=== PATIENT | female | born 1945 | race African-American/Black ===

== ENCOUNTER 2021-02-02 22:00 | Emergency (ER) | payer MEDICARE ==
[~2021-02-02] VITALS: Ht 170.2 cm; Wt 35.8 kg
[2021-02-02] MEDS ORDERED: SODIUM CHLORIDE 0.9% 1000ML 1,000 ML IV ONE (22:15)
[2021-02-02 23:01] LABS: BASOPHILS % 0.4 % (0.0-1.0); EOSINOPHILS # (AUTO) 0.1 (0.0-0.4); EOSINOPHILS % 0.9 % (0.0-6.0); HEMATOCRIT 37.1 % (34.2-44.1); HEMOGLOBIN 11.7 g/dL (12.0-16.0); LYMPHOCYTES # (AUTO) 3.1 (1.0-3.2); LYMPHOCYTES % 55.9 % (18.0-39.1); MEAN CORPUSCULAR HEMOGLOBIN 28.2 pg (28-32); MEAN CORPUSCULAR HGB CONC 31.5 g/dL (31-35); MEAN CORPUSCULAR VOLUME 89.4 fL (81-99); MONOCYTES # (AUTO) 0.1 (0.2-0.8); MONOCYTES % 1.8 % (4.4-11.3); NEUTROPHILS # (AUTO) 2.2 (2.1-6.9); NEUTROPHILS % 40.6 % (38.7-80.0); PLATELET COUNT 91 x10e3/uL (140-360); RED BLOOD COUNT 4.15 x10e6/uL (3.6-5.1); RED CELL DISTRIBUTION WIDTH 14.6 % (11.7-14.4)
[2021-02-02 23:20] LABS: ALBUMIN 2.9 g/dL (3.5-5.0); ALBUMIN/GLOBULIN RATIO 0.8 (0.8-2.0); ANION GAP 16.7 mmol/L (8-16); CALCIUM 9.1 mg/dL (8.4-10.2); CREATININE, SERUM 0.64 mg/dL (0.57-1.11); POTASSIUM 3.7 mmol/L (3.5-5.1)
[2021-02-02 23:27] LABS: AMYLASE 43 U/L (25-125); LIPASE 10 U/L (8-78)
[2021-02-03] MEDS ORDERED: DEXTROSE 50% SYRINGE 50 ML IV ONE (00:15)
[2021-02-03] MEDS ORDERED: TRAMADOL HCL 50 MG TAB PO ONE (00:15)
== END 2021-02-03 00:35 | disposition home or self-care (01) ==
LOC: ER 22:07
DX: C18.9 Malignant neoplasm of colon, unspecified (principal); R53.1 Weakness; Z79.899 Other long term (current) drug therapy
CPT/HCPCS: 36415; 80053; 82150; 82948; 83690; 85025; 99285; J7030; J7799